=== PATIENT | female | born 2000 | race Caucasian/White ===

== ENCOUNTER 2024-12-19 20:08 | Emergency (ER) | payer MEDICAID ==
[~2024-12-19] VITALS: Ht 147.3 cm; Wt 54.0 kg
[2024-12-19 20:10] VITALS: O2SAT 100
[2024-12-19 20:37] VITALS: BP 103/84; PULSE 109; RESP 16; TEMP 36.8; O2SAT 97
[2024-12-19 22:19] VITALS: TEMP 98.2
[2024-12-19] MEDS: ACETAMINOPHEN 500MG TABLET PO ONE (22:19)
[2024-12-19 22:34] LABS: CLARITY URINE CLOUDY (CLEAR); COLOR URINE YELLOW (YELLOW); GLUCOSE URINE NEGATIVE (NEGATIVE); KETONES URINE NEGATIVE (NEGATIVE); LEUKOCYTE ESTERASE URINE 1+ (NEGATIVE); NITRITE URINE NEGATIVE (NEGATIVE); OCCULT BLOOD URINE TRACE (NEGATIVE); PROTEIN URINE TRACE (NEGATIVE); SPECIFIC GRAVITY URINE 1.021 (1.005-1.030)
[2024-12-19 22:48] LABS: BACTERIA URINE 3+; SQUAMOUS EPITHELIAL CELL URINE 2+ /lpf (RARE/1+)
[2024-12-19] MEDS ORDERED: NITR100C MT (23:22)
== END 2024-12-19 23:58 | disposition home or self-care (01) ==
LOC: ER 20:08
DX: O26.892 Other specified pregnancy related conditions, second trimester (principal); R10.2 Pelvic and perineal pain; R82.71 Bacteriuria; R10.30 Lower abdominal pain, unspecified; Z3A.18 18 weeks gestation of pregnancy
CPT/HCPCS: 76805; 81003; 99284